=== PATIENT | female | born 1945 | race Caucasian/White ===

== ENCOUNTER 2019-03-26 12:05 | Emergency (ER) | payer OTHER ==
[~2019-03-26] VITALS: Ht 167.6 cm; Wt 101.6 kg
== END 2019-03-26 14:02 | disposition home or self-care (01) ==
LOC: ED 12:05
DX: S81.812A Laceration without foreign body, left lower leg, initial encounter (principal); Z88.8 Allergy status to other drugs, medicaments and biological substances; W22.8XXA Striking against or struck by other objects, initial encounter; Y93.89 Activity, other specified; Y92.22 Religious institution as the place of occurrence of the external cause; Y99.8 Other external cause status

== ENCOUNTER 2025-06-25 18:06 | Inpatient (IN) | payer OTHER ==
[~2025-06-25] VITALS: Ht 167.6 cm; Wt 82.6 kg
[~2025-06-25 18:06] MED LIST: ABILIFY10 MG PO; ASPIRIN ADULT L81 M2 PO; BREYNA 80-4.510.3 GM INH; BUPRENORPHINE1 EAC3 TD; CALMOSEPTINE OI71 GM T; Carafate1 GM PO; DONEPEZIL HYDROC5 MG PO; EXEMESTANE25 M2 PO; FAMOTIDINE40 MG PO; FUROSEMIDE40 MG PO; Ipratropium Brom3 ML INH; LOSARTAN POTAS100 M1 PO; LOSARTAN POTASS50 M1 PO; MEMANTINE HCL10 MG PO; METOPROLOL SUC100 M1 PO; MIRTAZAPINE15 M2 PO; NEURONTIN300 MG PO; NORMAL SALINE1000 M1 IR; Ondansetron4 MG PO; POTASSIUM CHLO20 ME3 PO; POTASSIUM CHLO20 ME4 PO; QUETIAPINE FUMA25 MG PO; REXULTI1 MG PO; RIVASTIGMINE1 EAC2 T; ROPINIROLE HYDRO1 MG PO; ROSUVASTATIN CA10 MG PO; [UNRECOGNIZED DRUG - OTHER] PO
[2025-06-25] MEDS ORDERED: BISACODYL 10 MG SUPP R PRN (18:20)
[2025-06-25] MEDS ORDERED: Ondansetron Hydrochloride 4 MG/2 ML VIAL IV PRN (18:20)
[2025-06-25] MEDS ORDERED: ATROPINE SULFATE 1% 2 ML BOTTLE SL PRN (18:20)
[2025-06-25] MEDS ORDERED: LORazepam 2 MG/ML VIAL IV PRN (18:25)
[2025-06-25 20:00] VITALS: BP 158/79
[2025-06-26] VITALS: BP 139/85
[2025-06-26 08:00] VITALS: BP 145/85
[2025-06-26] MEDS ORDERED: SODIUM CHLORIDE 0.9% 1,000 ML IV ONE ×2 (09:35→09:53)
[2025-06-26 11:52] VITALS: BP 147/74
[2025-06-26 16:00] VITALS: BP 107/75
[2025-06-26 20:00] VITALS: BP 91/68
[2025-06-27] VITALS: BP 142/78
[2025-06-27 08:00] VITALS: BP 131/92
[2025-06-27 16:00] VITALS: BP 110/64
[2025-06-27] MEDS ORDERED: SODIUM CHLORIDE 0.9% 1,000 ML IV SCH (18:00)
[2025-06-27 20:00] VITALS: BP 132/57
[2025-06-28] VITALS: BP 133/72
[2025-06-28 08:00] VITALS: BP 122/67
[2025-06-28 12:00] VITALS: BP 122/62
[2025-06-28 16:00] VITALS: BP 121/79; BP 122/72
[2025-06-28 20:00] VITALS: BP 106/71; BP 111/57
[2025-06-29 08:00] VITALS: BP 108/45
[2025-06-29 12:00] VITALS: BP 103/63
[2025-06-29] MEDS ORDERED: FOAM BANDAGE 1 EACH BANDAGE T ONE (15:52)
[2025-06-29 16:00] VITALS: BP 116/63
[2025-06-29 20:00] VITALS: BP 105/65
[2025-06-30 08:00] VITALS: BP 118/81
[2025-06-30 12:00] VITALS: BP 123/61
[2025-06-30 20:00] VITALS: BP 132/76
[2025-07-01 08:00] VITALS: BP 116/72
[2025-07-01] MEDS ORDERED: Water, Sterile 10 ML VIAL ONE ×2 (10:49→18:33)
[2025-07-01 16:00] VITALS: BP 105/47
[2025-07-01 20:00] VITALS: BP 92/62
[2025-07-02] MEDS ORDERED: LORazepam 2 MG/ML VIAL IV PRN (18:35)
[2025-07-02 20:00] VITALS: BP 61/36
== END 2025-07-02 22:29 | DRG 180 ==
LOC: 4E 18:06
PROVIDERS: ADMIT Internal Medicine; ATTEND Internal Medicine
DX: C34.90 Malignant neoplasm of unspecified part of unspecified bronchus or lung (principal); J96.01 Acute respiratory failure with hypoxia; N17.9 Acute kidney failure, unspecified; R04.2 Hemoptysis; F03.93 Unspecified dementia, unspecified severity, with mood disturbance; R13.10 Dysphagia, unspecified; J44.9 Chronic obstructive pulmonary disease, unspecified; Z66 Do not resuscitate; E78.5 Hyperlipidemia, unspecified; I10 Essential (primary) hypertension; I48.91 Unspecified atrial fibrillation; Z51.5 Encounter for palliative care; Z71.89 Other specified counseling; Z86.73 Personal history of transient ischemic attack (TIA), and cerebral infarction without residual deficits; Z85.038 Personal history of other malignant neoplasm of large intestine